=== PATIENT | female | born 1930 | race Caucasian/White ===

== ENCOUNTER 2017-07-30 09:57 | Emergency (ER) | payer OTHER ==
[~2017-07-30 09:57] MED LIST: ALLERGY10 M3 PO; ASPIR LOW81 MG PO; BACTRIM DS1 TAB; DONEPEZIL HCL10 MG PO; FLA250 PO; LAC PO; LEVAQUIN250 MG PO; LOPERAMIDE HCL2 MG PO; SENEXON-S1 TAB PO; SEROQUEL100 MG PO; TRAZODONE50 M1 PO; TUSSIN DM
[2017-07-30 12:10] VITALS: BP 108/46
== END 2017-07-30 13:05 | disposition home or self-care (01) ==
LOC: ED 09:57
DX: S09.90XA Unspecified injury of head, initial encounter (principal); G30.9 Alzheimer's disease, unspecified; F02.80 Dementia in other diseases classified elsewhere, unspecified severity, without behavioral disturbance, psychotic disturbance, mood disturbance, and anxiety; I10 Essential (primary) hypertension; M81.0 Age-related osteoporosis without current pathological fracture; W19.XXXA Unspecified fall, initial encounter; Y93.89 Activity, other specified; Y92.89 Other specified places as the place of occurrence of the external cause; Y99.8 Other external cause status